=== PATIENT | female | born 1930 | race Two or more races ===

== ENCOUNTER 2019-01-27 20:23 | Emergency (ER) | payer BC, OTHER ==
[~2019-01-27] VITALS: Ht 154.9 cm; Wt 59.0 kg
--- NOTE | 2019-01-27 20:40 | NUR ---
PT BIB PRIVATE AMBULANCE FROM [facility] FOR R ANKLE WOUND WITH YELLOWISH DRAINAGE NOTED, TO ER BED 3,VSS, CONNECTED TO MONITOR AWAITING MED EVAL
--- NOTE | 2019-01-27 21:05 | NUR ---
TECH AT BEDSIDE FOR XRAY
[2019-01-27] MEDS ORDERED: ACETAMINOPHEN 325 MG TABLET ONE (21:24)
[2019-01-27] MEDS ORDERED: ACETAMINOPHEN 325 MG TABLET PO ONE (21:30)
--- NOTE | 2019-01-27 21:38 | NUR ---
JOE VALENTIN TO [facility] ETA [id number] TRIP#[id number]
--- NOTE | 2019-01-27 22:19 | NUR ---
AMBULANCE HERE FOR PICKUP, REPORT CALLED INTO [facility]
[2019-01-27 22:20] VITALS: BP 147/70
== END 2019-01-27 22:21 | disposition home or self-care (01) ==
LOC: ER 20:26
DX: L03.115 Cellulitis of right lower limb (principal); L03.116 Cellulitis of left lower limb; I10 Essential (primary) hypertension; K21.9 Gastro-esophageal reflux disease without esophagitis
CPT/HCPCS: 73590-TC

== ENCOUNTER 2019-04-11 16:09 | Emergency (ER) | payer OTHER ==
[~2019-04-11] VITALS: Ht 152.4 cm; Wt 40.8 kg
--- NOTE | 2019-04-11 16:29 | NUR ---
KEVIN From [facility] by [facility], [facility] [address] for "Eval for possible UTI", TO ER BED 9, HOOKED TO MONITOR AND POX, CHANGED TO HOSP GOWN, PROVIDED W WARM BLANKET, PATIENT AOx2 , BREATHING EVEN AND UNLABORED, DR STEPHENS AT BEDSIDE
[2019-04-11] MEDS ORDERED: CHOL200059 PO (16:55)
[2019-04-11] MEDS ORDERED: ASPI-1169 PO (16:55)
[2019-04-11] MEDS ORDERED: FLUT1DIS3 IH (16:55)
[2019-04-11] MEDS ORDERED: ASCO-352 PO (16:55)
[2019-04-11] MEDS ORDERED: SENN-261 PO (16:55)
[2019-04-11] MEDS ORDERED: METO25TA20 PO (16:55)
--- NOTE | 2019-04-11 17:28 | NUR ---
URINE SAMPLE SENT TO LAB
[2019-04-11 17:38] LABS: APPEARANCE,URINE Cloudy (CLEAR); BILIRUBIN,URINE Negative (NEGATIVE); BLOOD, URINE Moderate Ery/uL (NEGATIVE); COLOR,URINE Yellow (YELLOW); KETONES,URINE Negative (NEGATIVE); LEUKOCYTE ESTERASE ,URINE Large (NEGATIVE); NITRITE, URINE Negative (NEGATIVE); PROTEIN,URINE >=300 mg/dl (NEGATIVE); UGLUCOSE Negative (NEGATIVE); UROBILINOGEN,URINE 0.2 EU/dL (0.2)
[2019-04-11 17:43] LABS: PH,URINE >9.0 (5.0-8.0)
[2019-04-11 17:56] LABS: BACTERIA,URINE Many /HPF (None Seen); SQUAMOUS EPITHELIAL CELL,UR Few /HPF (None Seen)
[2019-04-11] MEDS ORDERED: CEPHALEXIN MONOHYDRATE 500 MG CAPSULE PO ONE ×2 (18:29→18:30)
--- NOTE | 2019-04-11 18:29 | NUR ---
CALLED [facility] FOR TRANSPORT TO [facility], ETA [phone].
--- NOTE | 2019-04-11 18:47 | NUR ---
CALLED [facility] TO TRANSPORT TO [facility] 2029. TRIP NUMBER [id number].
--- NOTE | 2019-04-11 19:06 | NUR ---
sandwich and water provided to patient
--- NOTE | 2019-04-11 19:28 | NUR ---
REPORT GIVEN TO MERY LYONS FOR VICTORINA
--- NOTE | 2019-04-11 19:31 | NUR ---
REPORT RECEIVED FROM ELOY FRANCIS FOR VICTORINA
--- NOTE | 2019-04-11 19:45 | NUR ---
REPORT GIVEN TO SRIRAM EDWARDS OF [facility]
--- NOTE | 2019-04-11 20:00 | NUR ---
PT REFUSING VSS ASSESSMENT. PT APPEARS TO BE COMFORTABLE. NO ACUTE DISTRESS NOTED.
--- NOTE | 2019-04-11 20:56 | NUR ---
UPDATED [facility] ETA [id number] PER JACKY
--- NOTE | 2019-04-11 21:08 | NUR ---
Patient is resting comfortably in bed. NAD noted.
--- NOTE | 2019-04-11 21:43 | NUR ---
[facility] UPDATED ETA 5-10 MINS
[2019-04-11 22:19] VITALS: BP 147/81
--- NOTE | 2019-04-11 22:19 | NUR ---
REPORT GIVEN TO EMS. PT STABLE FOR TRANSFER
== END 2019-04-11 22:20 ==
LOC: ER 16:13
DX: N39.0 Urinary tract infection, site not specified (principal); E11.9 Type 2 diabetes mellitus without complications; J44.9 Chronic obstructive pulmonary disease, unspecified; F03.90 Unspecified dementia, unspecified severity, without behavioral disturbance, psychotic disturbance, mood disturbance, and anxiety; K21.9 Gastro-esophageal reflux disease without esophagitis; I10 Essential (primary) hypertension; Z79.82 Long term (current) use of aspirin; Z79.899 Other long term (current) drug therapy
CPT/HCPCS: 81000-TC; 87086-TC; 87186-TC